=== PATIENT | female | born 1970 ===

== ENCOUNTER 2024-01-10 19:24 | Emergency (ER) | payer MEDICAID, OTHER ==
[~2024-01-10] VITALS: Ht 157.5 cm; Wt 56.7 kg
[2024-01-10 20:40] LABS: Basophils # (auto) 0.1 10 ^3/uL (0-0.2); Eosinophils # (auto) 0.2 10 ^3/uL (0-0.8); Hematocrit 39.9 % (36.0-46.0); Hemoglobin 13.6 g/dL (12.2-16.2); Lymphocytes # (auto) 1.8 10 ^3/uL (0.4-5.4); Lymphocytes % (auto) 22.3 % (10.0-50.0); Monocytes # (auto) 0.5 10 ^3/uL (0-1.3); Neutrophils # (auto) 5.6 10 ^3/uL (1.6-8.6)
[2024-01-10 20:42] LABS: Basophils % (auto) 1.2 % (0.0-2.0); Mean Corpuscular Hemoglobin 29.4 pg (28.0-32.0); Mean Corpuscular Hgb Conc. 34.1 g/dL (32.0-36.0); Mean Corpuscular Volume 86.2 fL (80.0-100.0); Monocytes % (auto) 6.4 % (0.0-12.0); Neutrophils % (auto) 68.1 % (37.0-80.0); Red Blood Cells 4.63 10^6/uL (4.0-5.20); Red Cell Distribution Width 13.1 % (11.8-14.3); White Blood Cell 8.2 10^3/uL (4.4-10.8)
[2024-01-10 20:51] VITALS: TEMP 98.2
[2024-01-10 20:52] LABS: Chloride 108 mmol/L (98-107); Sodium 145 mmol/L (136-145)
[2024-01-10 20:53] LABS: Anion Gap 8 (5-15); Calcium 9.2 mg/dL (8.5-10.1); Carbon Dioxide 29 mmol/L (20-30)
[2024-01-10 20:58] LABS: BUN/Creatinine Ratio 20.9 (10.0-20.0); Blood Urea Nitrogen 14 mg/dL (9-23); Glucose 94 mg/dL (74-106)
[2024-01-10] MEDS: LISINOPRIL 20 MG TAB PO ONE (20:58)
[2024-01-10] MEDS ORDERED: LISI20TA56 PO (21:19)
[2024-01-10] MEDS: POTASSIUM CHL 20 Meq TABLET PO ONE (21:41)
[2024-01-10 21:44] VITALS: BP 152/97; PULSE 78; RESP 16; O2SAT 97
[2024-01-10 21:52] LABS: Large Platelets FEW; Platelet Estimate Increased
== END 2024-01-10 21:45 | disposition home or self-care (01) ==
LOC: ER 19:24 → EEVIPCON 19:24 → ER 21:45
DX: I10 Essential (primary) hypertension (principal); E87.6 Hypokalemia; M25.562 Pain in left knee; M25.561 Pain in right knee; W19.XXXA Unspecified fall, initial encounter; Y93.89 Activity, other specified; Y92.89 Other specified places as the place of occurrence of the external cause; Y99.8 Other external cause status
CPT/HCPCS: 36415; 80048; 85025